=== PATIENT | male | born 1955 | race American Indian/Alaskan Native ===

== ENCOUNTER 2022-02-07 09:59 | Emergency (ER) | payer SELFPAY ==
[2022-02-07] MEDS ORDERED: cloNIDine 0.1 MG TAB PO ONE (11:56)
--- NOTE | 2022-02-07 12:09 | Emergency Department Report ---
ED General Adult HPI - General Chief complaint: High BP Stated complaint: HBP/STOMACH PAIN Time Seen by Provider: 02/07/22 11:10 Source: patient Mode of arrival: Ambulatory Limitations: No Limitations - History of Present Illness Initial comments: 67-year-old male with a past medical history hypertension presents to the hospital complaining elevated blood pressure despite medication compliance. Patient states been recently compliant with losartan 100 mg daily last dose this a.m. His BP was 210/111 on ED arrival. Patient states he has been having intermittent nonexertional epigastric and chest burning which feels like heartburn. This pain improves. [id number] antacids. He denies nausea, vomiting, diaphoresis, or associated shortness of breath. There is no pain radiation. Patient has not had chest pain x1 week. Patient denies headache or blurry vision. He expresses concern for STD because he thinks his partner is cheating on him. Complains of mild dysuria. He also states he has a decreased. He is a non-smoker and denies family history of CAD Severity scale (0 -10): 0 - Related Data Previous Rx's Medication Instructions Recorded Last Taken Type Valsartan [Diovan] 160 mg PO BID #60 tablet 02/07/22 Unknown Rx raNITIdine HCl [Zantac] 150 mg PO DAILY #30 tab 02/07/22 Unknown Rx Allergies Allergy/AdvReac Type Severity Reaction Status Date / Time No Known Allergies Allergy Unverified 02/07/22 10:06 ED Review of Systems ROS: Stated complaint: HBP/STOMACH PAIN Other details as noted in HPI Comment: All other systems reviewed and negative ED Past Medical Hx - Past Medical History Previous Medical History?: Yes Hx Hypertension: Yes - Surgical History Past Surgical History?: No - Medications Home Medications: Home Medications Medication Instructions Recorded Confirmed Last Taken Type Valsartan [Diovan] 160 mg PO BID #60 tablet 02/07/22 Unknown Rx raNITIdine HCl [Zantac] 150 mg PO DAILY #30 tab 02/07/22 Unknown Rx ED Physical Exam - General Limitations: No Limitations - Other Other exam information: General: No acute distress Head: Atraumatic Eyes: normal appearance ENT: Moist mucous membranes Neck: Normal appearance, no midline tenderness Chest: Clear to auscultation bilaterally CV: Regular rate and rhythm Abdomen: Soft, normal bowel sounds, nontender, nondistended, no rebound or guarding Back: Normal inspection Extremity: Normal inspection, full range of motion Neuro: Alert O x 3, no facial asymmetry, speech clear, no gross motor sensory deficit Psych: Appropriate behavior Skin: No rash ED Course Vital Signs 02/07/22 02/07/22 02/07/22 10:09 11:36 11:38 Temperature 98.9 F Pulse Rate 78 65 Respiratory 18 16 Rate Blood Pressure 210/111 Blood Pressure 201/114 [Left] O2 Sat by Pulse 100 98 100 Oximetry 02/07/22 02/07/22 02/07/22 12:00 13:09 14:07 Temperature Pulse Rate 68 65 Respiratory 18 16 Rate Blood Pressure 187/112 Blood Pressure 156/101 [Left] O2 Sat by Pulse 97 100 Oximetry - Consultations Consultation #1: 02/07/22 13:29 case d/w Dr donald hospitalist regarding recommendation for bp med change. Rec to d/c losartan 100mg qd and start valsartan 160 BID ED Medical Decision Making - Lab Data Result diagrams: 02/07/22 12:03 02/07/22 12:03 Lab Results 02/07/22 02/07/22 02/07/22 Range/Units 12:03 12:03 Unknown WBC 3.1 L (4.5-11.0) K/mm3 RBC 4.74 (3.65-5.03) M/mm3 Hgb 14.0 (11.8-15.2) gm/dl Hct 41.7 (35.5-45.6) % MCV 88 (84-94) fl MCH 30 (28-32) pg MCHC 34 (32-34) % RDW 13.4 (13.2-15.2) % Plt Count 253 (140-440) K/mm3 Lymph % (Auto) 42.4 H (13.4-35.0) % [place] % (Auto) 9.1 H (0.0-7.3) % Eos % (Auto) 7.4 H (0.0-4.3) % Baso % (Auto) 0.9 (0.0-1.8) % Lymph # (Auto) 1.3 (1.2-5.4) K/mm3 [place] # (Auto) 0.3 (0.0-0.8) K/mm3 Eos # (Auto) 0.2 (0.0-0.4) K/mm3 Baso # (Auto) 0.0 (0.0-0.1) K/mm3 Seg Neutrophils % 40.2 (40.0-70.0) % Seg Neutrophils # 1.3 L (1.8-7.7) K/mm3 Sodium 140 (137-145) mmol/L Potassium 3.9 (3.6-5.0) mmol/L Chloride 103.1 (98-107) mmol/L Carbon Dioxide 25 (22-30) mmol/L Anion Gap 16 mmol/L BUN 12 (9-20) mg/dL Creatinine 0.9 (0.8-1.3) mg/dL Estimated GFR > 60 ml/min BUN/Creatinine Ratio 13 % Glucose 100 (75-100) mg/dL Calcium 9.3 (8.4-10.2) mg/dL Troponin T < 0.010 (0.00-0.029) ng/mL Urine Color Straw (Yellow) Urine Turbidity Clear (Clear) Urine pH 8.0 H (5.0-7.0) Ur Specific [place] 1.008 (1.003-1.030) Urine Protein <15 mg/dl (Negative) mg/dL Urine Glucose (UA) Neg (Negative) mg/dL Urine Ketones Neg (Negative) mg/dL Urine Blood Neg (Negative) Urine Nitrite Neg (Negative) Urine Bilirubin Neg (Negative) Urine Urobilinogen < 2.0 (<2.0) mg/dL Ur Leukocyte Esterase Neg (Negative) Urine WBC (Auto) 1.0 (0.0-6.0) /HPF Urine RBC (Auto) 1.0 (0.0-6.0) /HPF - EKG Data -: EKG Interpreted by Nh EKG shows normal: sinus rhythm, ST-T waves (Lateral T wave inversions, inferior T wave, no ST elevation) Rate: normal - EKG Data When compared to previous EKG there are: previous EKG unavailable - Radiology Data Radiology results: report reviewed XR chest 1V ap INDICATION / CLINICAL INFORMATION: Chest Pain. COMPARISON: None available. FINDINGS: SUPPORT DEVICES: None. HEART /PULMONARY VASCULATURE: No significant abnormality. LUNGS / PLEURA: No significant pulmonary or pleural abnormality. No pneumothorax. IMPRESSION: 1. No acute findings. - Medical Decision Making 67-year-old male presents to the hospital with asymptomatic hypertension. Blood pressure trending downward after receiving clonidine. No signs of end-stage organ disease and he remains asymptomatic. Patient's medications will be adjusted as per hospitalist recommendation. Patient has intermittent heartburn pain without pain x1 week. EKG shows nonspecific T wave abnormalities with a heart score of 4 and negative troponin. outpatient with cardiology will be advised. Patient also has other complaints such as concern for STD with intermittent dysuria. UA negative today. Patient also complains of decreased libido. Patient will be encouraged to follow-up with his primary care doctor for evaluation of his other complaints or further STD testing and evaluation of libido changes such as testosterone management Critical Care Time: No Critical care attestation.: If time is entered above; I have spent that time in minutes in the direct care o f this critically ill patient, excluding procedure time. ED Disposition Clinical Impression: Uncontrolled hypertension, Intermittent chest pain, GERD (gastroesophageal reflux disease) Disposition: 01 HOME / SELF CARE / HOMELESS Is pt being admited?: No Does the pt Need Aspirin: No Condition: Stable Instructions: Nonspecific Chest Pain, Adult, Gastroesophageal Reflux Disease, Adult, Hypertension, Adult, Hypertension (ED) Additional Instructions: Take the medication as prescribed. Follow-up with your doctor or doctor/clinic provided. I recommend that you follow-up with operating theatre technician for outpatient stress test and heart evaluation as well as additional blood pressure management. Return if symptoms worsen as indicated by your discharge instructions. I recommend that you follow-up with your primary care doctor for STD testing and to discuss your concern about your change in libido. You have also been started on Zantac which is a medication to help with heartburn. Prescriptions: Valsartan [Diovan] 160 mg PO BID #60 tablet raNITIdine HCl [Zantac] 150 mg PO DAILY #30 tab Referrals: your, pmd [Other] - 3-5 Days CALEB OTT MD [Staff Physician] - 3-5 Days (operating theatre technician ) Time of Disposition: 14:09 Heart Score - HEART Score History: Slightly suspicious EKG: Non-specific Age: > 65 Risk factors: 1-2 risk factors Troponin: < normal limit HEART Score: 4 - EKG Read Time Time EKG Completed: 13:55 EKG Read Time: 13:57
--- NOTE | 2022-02-07 12:29 | XRay Report ---
XR chest 1V ap INDICATION / CLINICAL INFORMATION: Chest Pain. COMPARISON: None available. FINDINGS: SUPPORT DEVICES: None. HEART /PULMONARY VASCULATURE: No significant abnormality. LUNGS / PLEURA: No significant pulmonary or pleural abnormality. No pneumothorax. IMPRESSION: 1. No acute findings. Signer Name: Kenji Moreno MD Signed: 02/07/2022 12:24 PM Workstation Name: [id number]
[2022-02-07 12:30] LABS: Basophils % (Auto) 0.9 % (0.0-1.8); Eosinophils # (Auto) 0.2 K/mm3 (0.0-0.4); Eosinophils % (Auto) 7.4 % (0.0-4.3); Hematocrit 41.7 % (35.5-45.6); Lymphocytes # (Auto) 1.3 K/mm3 (1.2-5.4); Lymphocytes % (Auto) 42.4 % (13.4-35.0); Mean Corpuscular HGB Conc 34 % (32-34); Mean Corpuscular Volume 88 fl (84-94); Monocytes # (Auto) 0.3 K/mm3 (0.0-0.8); Monocytes % (Auto) 9.1 % (0.0-7.3); Platelet Count 253 K/mm3 (140-440); Red Blood Count 4.74 M/mm3 (3.65-5.03); Red Cell Distribution Width 13.4 % (13.2-15.2)
[2022-02-07 12:42] LABS: BUN/Creatinine Ratio 13; Blood Urea Nitrogen 12 mg/dL (9-20); Calcium 9.3 mg/dL (8.4-10.2); Hemolysis Index 12
[2022-02-07 13:55] LABS: Bilirubin,Urine NEG (Negative); Blood,Urine NEG (Negative); Color,Urine Straw (Yellow); Protein,Urine <15 mg/dL mg/dL (Negative); Urobilinogen,Urine < 2.0 mg/dL (<2.0)
[2022-02-07 14:35] VITALS: BP 151/98
--- NOTE | 2022-02-09 09:58 | Electrocardiograph Report ---
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
== END 2022-02-07 14:35 | disposition home or self-care (01) ==
LOC: ED 09:59
DX: I10 Essential (primary) hypertension (principal); K21.9 Gastro-esophageal reflux disease without esophagitis; Z79.899 Other long term (current) drug therapy
CPT/HCPCS: 36415; 71045; 80048; 81001; 84484; 85025; 93005; 99284

== ENCOUNTER 2022-05-11 08:54 | Emergency (ER) | payer MEDICARE ==
[2022-05-11 09:28] VITALS: BP 211/109
--- NOTE | 2022-05-11 09:41 | Emergency Department Report ---
- General Stated complaint: FATIGUE,NO APPITITE PUI?: No Time Seen by Provider: 05/11/22 09:24 Source: patient Mode of arrival: Ambulatory Limitations: No Limitations - History of Present Illness Initial comments: 67 yo comes in with generalized weakness. Off his bp meds- valsartan (he has on him) Endorses cp and no sob MD Complaint: generalized weakness - Related Data Previous Rx's Medication Instructions Recorded Last Taken Type Valsartan [Diovan] 160 mg PO BID #60 tablet 02/07/22 Unknown Rx raNITIdine HCl [Zantac] 150 mg PO DAILY #30 tab 02/07/22 Unknown Rx Allergies Allergy/AdvReac Type Severity Reaction Status Date / Time No Known Allergies Allergy Unverified 02/07/22 10:06 ED Review of Systems ROS: Stated complaint: FATIGUE,NO APPITITE Other details as noted in HPI Comment: All other systems reviewed and negative ED Past Medical Hx - Past Medical History Previous Medical History?: Yes Hx Hypertension: Yes - Family History Family history: no significant - Social History Smoking Status: Never Smoker Substance Use Type: None - Medications Home Medications: Home Medications Medication Instructions Recorded Confirmed Last Taken Type Valsartan [Diovan] 160 mg PO BID #60 tablet 02/07/22 Unknown Rx raNITIdine HCl [Zantac] 150 mg PO DAILY #30 tab 02/07/22 Unknown Rx ED Physical Exam - General General appearance: alert, in no apparent distress - Head Head exam: Present: atraumatic, normocephalic - Eye Eye exam: Present: normal appearance - ENT ENT exam: Present: mucous membranes moist - Neck Neck exam: Present: normal inspection - Respiratory Respiratory exam: Present: normal lung sounds bilaterally. Absent: respiratory distress - Cardiovascular Cardiovascular Exam: Present: regular rate, normal rhythm. Absent: systolic murmur, diastolic murmur, rubs, gallop - GI/Abdominal GI/Abdominal exam: Present: soft, normal bowel sounds - Rectal Rectal exam: Present: deferred - Extremities Exam Extremities exam: Present: normal inspection - Back Exam Back exam: Present: normal inspection - Neurological Exam Neurological exam: Present: alert, oriented X3 - Psychiatric Psychiatric exam: Present: normal affect, normal mood - Skin Skin exam: Present: warm, dry, intact, normal color. Absent: rash ED Course Vital Signs 05/11/22 09:22 Temperature 99.1 F Pulse Rate 71 Respiratory 14 Rate Blood Pressure 211/109 O2 Sat by Pulse 99 Oximetry ED Medical Decision Making - Lab Data Result diagrams: 05/11/22 09:59 05/11/22 09:59 Critical care attestation.: If time is entered above; I have spent that time in minutes in the direct care of this critically ill patient, excluding procedure time. ED Disposition Clinical Impression: Weakness Disposition: 07 LEFT AWOL/ELOPED Is pt being admited?: No Does the pt Need Aspirin: No Condition: Stable
--- NOTE | 2022-05-11 10:03 | XRay Report ---
CHEST 2 VIEWS INDICATION / CLINICAL INFORMATION: cp. COMPARISON: 02/07/2022 FINDINGS: SUPPORT DEVICES: None. HEART / MEDIASTINUM: No significant abnormality. LUNGS / PLEURA: No significant pulmonary or pleural abnormality. No pneumothorax. ADDITIONAL FINDINGS: No significant additional findings. IMPRESSION: 1. No acute findings. Signer Name: Ji Estevez MD Signed: 05/11/2022 9:59 AM Workstation Name: [id number]
--- NOTE | 2022-05-11 10:57 | Electrocardiograph Report ---
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
[2022-05-11 10:58] LABS: Basophils % (Auto) 0.8 % (0.0-1.8); Eosinophils # (Auto) 0.1 K/mm3 (0.0-0.4); Eosinophils % (Auto) 2.3 % (0.0-4.3); Hematocrit 44.9 % (35.5-45.6); Hemoglobin 15.3 gm/dl (11.8-15.2); Lymphocytes # (Auto) 1.6 K/mm3 (1.2-5.4); Lymphocytes % (Auto) 35.9 % (13.4-35.0); Mean Corpuscular HGB Conc 34 % (32-34); Mean Corpuscular Volume 90 fl (84-94); Monocytes # (Auto) 0.4 K/mm3 (0.0-0.8); Monocytes % (Auto) 9.6 % (0.0-7.3); Platelet Count 282 K/mm3 (140-440); Red Blood Count 5.01 M/mm3 (3.65-5.03); Red Cell Distribution Width 13.7 % (13.2-15.2)
[2022-05-11 11:13] LABS: Alanine Aminotransferase 34 units/L (7-56); Albumin 4.6 g/dL (3.9-5); BUN/Creatinine Ratio 9; Blood Urea Nitrogen 8 mg/dL (9-20); Calcium 9.3 mg/dL (8.4-10.2); Hemolysis Index 6
[2022-05-11] MEDS ORDERED: cloNIDine 0.1 MG TAB PO ONE (20:40)
[2022-05-11] MEDS ORDERED: LISINOPRIL 20 MG TAB PO ONE (20:40)
== END 2022-05-11 10:00 | disposition left against medical advice (07) ==
LOC: ED 08:54
DX: R53.1 Weakness (principal); I10 Essential (primary) hypertension
CPT/HCPCS: 36415; 71046; 80053; 84484; 85025; 93005; 99283